=== PATIENT | female | born 1980 | race Caucasian/White ===

== ENCOUNTER 2017-04-23 05:44 | Emergency (ER) | payer MEDICAID ==
[2017-04-23 05:56] VITALS: BP 123/84
--- NOTE | 2017-04-23 05:58 | ED Physician Documentation ---
PD HPI HEENT - Stated complaint Stated Complaint: SORE THROAT - Chief complaint Chief Complaint: General - History obtained from History obtained from: Patient - History of Present Illness Timing - onset: How many days ago Timing - duration: Days (2) Timing - details: Gradual onset, Constant, Waxing and waning Pain level now: 6 Location: Throat Improves: Nothing Worsens: Swalllowing Associated symptoms: Fever (Tmax 100.8) Similar symptoms before: Has not had sx before Recently seen: Not recently seen Review of Systems Constitutional: reports: Fever Ears: denies: Ear pain Nose: denies: Congestion, Sinus pressure / pain Throat: reports: Sore throat Respiratory: denies: Cough PD PAST MEDICAL HISTORY - Past Medical History Cardiovascular: Other Respiratory: None Endocrine/Autoimmune: None GI: Chronic constipation, Other : None HEENT: None Psych: Depression, Anxiety, Panic attacks Musculoskeletal: Chronic back pain Derm: None - Past Surgical History /[employer]: section, Tubal ligation - Present Medications Home Medications: Ambulatory Orders Medication Instructions Recorded Confirmed Cholecalciferol (Vitamin D3) 5,000 unit PO DAILY 12/02/14 12/02/14 [Vitamin D] Chrom Sudhir/Brindal Ashby [Garcinia 1 each PO DAILY 12/02/14 12/02/14 Cambogia Tablet] Multivitamin [Multivitamins] 1 each PO DAILY 12/02/14 12/02/14 [place]'s Wort 450 mg PO DAILY 12/02/14 12/02/14 Hydrocodone/Acetaminophen 1 - 2 each PO Q6HR PRN #10 tablet 04/23/17 [Hydrocodon-Acetaminophen 5-325] Penicillin V Potassium 500 mg PO QID #39 tablet 04/23/17 - Allergies Allergies/Adverse Reactions: Allergies Allergy/AdvReac Type Severity Reaction Status Date / Time latex AdvReac Intermediate Rash Verified 04/23/17 05:55 PD ED PE NORMAL - Vitals Vital signs reviewed: Yes - General General: Alert and oriented X 3, Well developed/nourished, Other (appears uncomfortable) - HEENT HEENT: Moist mucous membranes - Neck Neck: Supple, no meningeal sign PD ED PE EXPANDED - HEENT HEENT: Pharyngeal erythema, Swollen tonsils, Tonsillar exudate Results - Vitals Vitals: Vital Signs - 24 hr 04/23/17 05:53 Temperature 36.8 C Heart Rate 86 Respiratory 17 Rate Blood Pressure 123/84 H O2 Saturation 97 Oxygen O2 Source Room air - Labs Labs: Laboratory Tests 04/23/17 05:55 Group A Strep Rapid POSITIVE H PD MEDICAL DECISION MAKING - ED course Complexity details: reviewed results, re-evaluated patient, considered differential, d/w patient Departure - Departure Disposition: 01 Home, Self Care Clinical Impression: Strep pharyngitis Condition: Good Instructions: ED Strep Pharyngitis Conf Follow-Up: Georgina Jha ARNP [Primary Care Provider] - (4-5 days if symptoms persist) Prescriptions: Hydrocodone/Acetaminophen [Hydrocodon-Acetaminophen 5-325] 1 - 2 each PO Q6HR PRN #10 tablet PRN Reason: Pain Penicillin V Potassium 500 mg PO QID #39 tablet Forms: Activity restrictions Discharge Date/Time: 04/23/17 06:54
[2017-04-23 06:09] LABS: RAPID STREP SCREEN REAGENT QC YELLOW (YELLOW)
[2017-04-23] MEDS ORDERED: DEXAMETHASONE 10 MG/ML VIAL PO STA (06:09)
[2017-04-23] MEDS ORDERED: DEXAMETHASONE 10 MG/ML VIAL ONE (06:11)
[2017-04-23] MEDS ORDERED: HYDROcod/ACET 5/325 Prepack 6 PO STA (06:38)
[2017-04-23] MEDS ORDERED: PENICILLIN VK 250 MG TABLET PO STA (06:38)
[2017-04-23] MEDS ORDERED: HYDROcod/ACET 5/325 Prepack 6 PO ONE (06:40)
[2017-04-23] MEDS ORDERED: PENICILLIN VK 250 MG TABLET PO ONE (06:40)
== END 2017-04-23 06:54 | disposition home or self-care (01) ==
LOC: ED 05:44
DX: J02.0 Streptococcal pharyngitis (principal)
CPT/HCPCS: 87430; 99283; A9270

== ENCOUNTER 2017-08-30 08:00 | Outpatient (CLI) | payer MEDICAID ==
[2017-08-30 18:08] LABS: BILIRUBIN,URINE NEGATIVE (NEGATIVE); PH,URINE 7.5 PH (5.0-7.5)
[2017-08-30 18:45] LABS: UA CHARGE (STRIP ONLY) YES
== END 2017-08-30 08:01 | disposition home or self-care (01) ==
LOC: LAB.R 08:00
PROVIDERS: ATTEND Nurse Practitioner Family
DX: R10.30 Lower abdominal pain, unspecified (principal)
CPT/HCPCS: 81001; 81003

== ENCOUNTER 2017-09-01 09:38 | Outpatient (CLI) | payer MEDICAID ==
[2017-09-01 18:22] LABS: BILIRUBIN,DIRECT 0.1 mg/dL (0.1-0.5); BILIRUBIN,TOTAL 0.7 mg/dL (0.2-1.0); TOTAL PROTEIN 7.5 g/dL (6.7-8.2)
== END 2017-09-01 09:39 | disposition home or self-care (01) ==
LOC: LAB.F 09:38
PROVIDERS: ATTEND Nurse Practitioner Family
DX: B19.20 Unspecified viral hepatitis C without hepatic coma (principal); Z13.1 Encounter for screening for diabetes mellitus; R10.30 Lower abdominal pain, unspecified
CPT/HCPCS: 36415; 80076; 82947

== ENCOUNTER 2018-10-23 15:30 | Outpatient (CLI) | payer MEDICAID ==
[2018-10-23 18:05] LABS: BASOPHILS % (AUTO) 0.4 %; EOSINOPHILS # (AUTO) 0.1 10^3/uL (0.0-0.7); EOSINOPHILS % (AUTO) 1.1 %; HGB - HEMOGLOBIN 13.7 g/dL (12.0-16.0); LYMPHOCYTES # (AUTO) 1.6 10^3/uL (1.5-3.5); LYMPHOCYTES % (AUTO) 17.5 %; MEAN CORPUSCULAR HEMOGLOBIN 30.9 pg (27.0-31.0); MEAN CORPUSCULAR HGB CONC 33.9 g/dL (32.0-36.0); MEAN CORPUSCULAR VOLUME 91.2 fL (81.0-99.0); MONOCYTES # (AUTO) 0.7 10^3/uL (0.0-1.0); MONOCYTES % (AUTO) 7.2 %; NEUTROPHILS # (AUTO) 6.7 10^3/uL (1.5-6.6); NEUTROPHILS % (AUTO) 73.8 %; PLT - PLATELET COUNT 221 10^3/uL (130-450); RED BLOOD COUNT 4.43 10^6/uL (4.20-5.40); RED CELL DISTRIBUTION WIDTH 12.8 % (12.0-15.0); WHITE BLOOD COUNT 9.2 x10^3/uL (4.8-10.8)
[2018-10-23 20:28] LABS: ALBUMIN 4.8 g/dL (3.2-5.5); ALBUMIN/GLOBULIN RATIO 1.7 (1.0-2.2); BILIRUBIN,TOTAL 0.4 mg/dL (0.2-1.0); CALCIUM 8.9 mg/dL (8.5-10.3); CREATININE 0.7 mg/dL (0.4-1.0); TOTAL PROTEIN 7.6 g/dL (6.7-8.2)
== END 2018-10-23 23:59 | disposition home or self-care (01) ==
LOC: LAB.S 15:30
PROVIDERS: ATTEND Nurse Practitioner Family
DX: F41.8 Other specified anxiety disorders (principal)
CPT/HCPCS: 36415; 80050

== ENCOUNTER 2019-08-22 11:01 | Emergency (ER) | payer SELFPAY ==
[2019-08-22] MEDS ORDERED: AMOX/CLAV 875 MG/125 MG TABLET PO STA (13:02)
--- NOTE | 2019-08-22 13:04 | ED Physician Documentation ---
PD HPI SKIN - Stated complaint Stated Complaint: CAT SCRATCH - Chief complaint Chief Complaint: Wound - History obtained from History obtained from: Patient - History of Present Illness Timing - onset: Last night (38-year-old woman who is up-to-date on tetanus, her cat scratched her last night, once inside the right nares and once on upper right eyelid. No visual deficit. 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 - Present Medications Home Medications: Ambulatory Orders Medication Instructions Recorded Confirmed Cholecalciferol (Vitamin D3) 5,000 unit PO DAILY 12/02/14 12/02/14 [Vitamin D] Chrom Sudhir/Brindal Ashby [Garcinia 1 each PO DAILY 12/02/14 12/02/14 Cambogia Tablet] Multivitamin [Multivitamins] 1 each PO DAILY 12/02/14 12/02/14 [place]'s Wort 450 mg PO DAILY 12/02/14 12/02/14 Hydrocodone/Acetaminophen 1 - 2 each PO Q6HR PRN #10 tablet 04/23/17 [Hydrocodon-Acetaminophen 5-325] Penicillin V Potassium 500 mg PO QID #39 tablet 04/23/17 Amox/Clav 875/125 [Augmentin] 1 each PO Q12H #20 tablet 08/22/19 - Allergies Allergies/Adverse Reactions: Allergies Allergy/AdvReac Type Severity Reaction Status Date / Time latex AdvReac Intermediate Rash Verified 08/22/19 11:12 - Social History Does the pt smoke?: Yes Smoking Status: Current some day smoker Does the pt drink ETOH?: Yes Does the pt have substance abuse?: No - Immunizations Immunizations are current?: Yes PD ED PE NORMAL - Vitals Vital signs reviewed: Yes - General General: Alert and oriented X 3, No acute distress - HEENT HEENT: Other (There is a small scratch on the upper eyelid, this is on the right. FLUORESCEIN examination is negative. There is mild edema and redness of the eyelid. There is also a scratch on the border of the lateral right nares without evidence of infection there.) - Neck Neck: Supple, no meningeal sign, No bony TTP - Neuro Neuro: Alert and oriented X 3, Normal speech Results - Vitals Vitals: Vital Signs - 24 hr 08/22/19 08/22/19 11:12 13:12 Temperature 36.5 C 36.6 C Heart Rate 65 67 Respiratory 16 16 Rate Blood Pressure 151/79 H 115/92 H O2 Saturation 100 100 Oxygen O2 Source Room air PD MEDICAL DECISION MAKING - ED course ED course: 38-year-old woman with very mild cat scratch infection of the right eyelid and a noninfected scratch of the right nares. She is started on Augmentin. Tetanus is up-to-date. Departure - Departure Disposition: 01 Home, Self Care Clinical Impression: Cat scratch of face Qualifiers: Encounter type: initial encounter Qualified Code(s): S00.81XA - Abrasion of other part of head, initial encounter Condition: Good Record reviewed to determine appropriate education?: Yes Instructions: ED Bite Animal General Prescriptions: Amox/Clav 875/125 [Augmentin] 1 each PO Q12H #20 tablet Comments: Return for increasing swelling, fevers, significant pain. Your blood pressure was elevated today on check into the emergency department. This does not mean that you have hypertension, it is a common phenomenon to come to the emergency department and have elevated blood pressure. I recommend that you see your primary care physician within the week to have it rechecked when you are feeling better. Discharge Date/Time: 08/22/19 13:45
[2019-08-22 13:12] VITALS: BP 115/92
== END 2019-08-22 13:45 | disposition home or self-care (01) ==
LOC: ED 11:01
DX: S00.31XA Abrasion of nose, initial encounter (principal); S00.211A Abrasion of right eyelid and periocular area, initial encounter; W55.03XA Scratched by cat, initial encounter; Y93.89 Activity, other specified; Y92.009 Unspecified place in unspecified non-institutional (private) residence as the place of occurrence of the external cause; F17.200 Nicotine dependence, unspecified, uncomplicated
CPT/HCPCS: 99283; A9270

== ENCOUNTER 2021-10-16 13:45 | Outpatient (CLI) | payer SELFPAY ==
[2021-10-16 17:15] LABS: BILIRUBIN,URINE NEGATIVE (NEGATIVE); GLUCOSE, URINE (UA) NEGATIVE (NEGATIVE); KETONES,URINE (UA) NEGATIVE (NEGATIVE); LEUKOCYTE ESTERASE, URINE NEGATIVE (NEGATIVE); NITRITE,URINE NEGATIVE (NEGATIVE); OCCULT BLOOD,URINE NEGATIVE (NEGATIVE); PH,URINE 6.5 PH (5.0-7.5); PROTEIN,URINE NEGATIVE (NEGATIVE); UROBILINOGEN,URINE 0.2 (NORMAL) E.U./dL (NORMAL)
[2021-10-16 17:26] LABS: BACTERIA,URINE Rare /HPF (None Seen); CLARITY,URINE CLEAR (CLEAR); RBC,URINE None Seen /HPF (0-5); SQUAMOUS EPITHELIAL CELL,UR RARE Squamous (<= Few); WBC,URINE 0-3 /HPF (0-5)
== END 2021-10-16 23:59 | disposition home or self-care (01) ==
LOC: LAB 13:45
PROVIDERS: ATTEND Obstetrics & Gynecology
DX: N30.00 Acute cystitis without hematuria (principal)
CPT/HCPCS: 81001; 87086

== ENCOUNTER → 2021-12-29 | Outpatient (CLI) | payer SELFPAY | LOC: LAB.S 08:00 | PROVIDERS: ATTEND Physician Assistant | DX: J03.90 Acute tonsillitis, unspecified (principal) | CPT/HCPCS: 87070 ==

== ENCOUNTER 2022-01-05 12:41 | Outpatient (CLI) | payer SELFPAY ==
--- NOTE | 2022-01-05 16:57 | Ultrasound Report ---
PROCEDURE: Pelvic w/Transvaginal INDICATIONS: ABN UTERINE BLEEDING TECHNIQUE: Ultrasound of the pelvis is performed. COMPARISON: None. FINDINGS: Uterus measures 10.6 x 4.8 cm x 6.1 cm, and demonstrates no focal mass. Uterine echotexture is coarse and heterogeneous. Endometrium is normal in thickness at 6 mm diameter. Right ovary measures 24 mm x 18 mm x 16 mm. Left ovary measures 30 mm x 19 mm x 27 mm. IMPRESSION: Negative examination. Reviewed by: Carissa Álvarez MD on 01/05/2022 4:56 PM PST Approved by: Carissa Álvarez MD on 01/05/2022 4:56 PM PST Station ID: [id number]
== END 2022-01-05 12:42 | disposition home or self-care (01) ==
LOC: DI 12:41
PROVIDERS: ATTEND Obstetrics & Gynecology
DX: N93.9 Abnormal uterine and vaginal bleeding, unspecified (principal)

== ENCOUNTER 2022-11-16 16:58 | Observation (INO) | payer SELFPAY ==
[2022-11-16] MEDS ORDERED: HYDROmorphone 1 MG/ML CARPUJECT IM STA (17:18)
--- NOTE | 2022-11-16 17:19 | ED Physician Documentation ---
PD HPI MAJOR TRAUMA - Stated complaint Stated Complaint: CHEST PAIN LEFT SIDE - Chief complaint Chief Complaint: Trauma Hd/Nk - History obtained from History obtained from: Patient - Additional information Additional information: Otherwise healthy 41-year-old woman with no possibility of was standing on a sled today going down a hill and fell landing on her left side hurting the left neck, shoulder, left ribs and felt a crunch in the left ribs and has pain with breathing. No head injury, no loss of consciousness, no headache. Review of Systems Ten Systems: 10 systems reviewed and negative Cardiac: reports: Chest pain / pressure Respiratory: denies: Dyspnea PD PAST MEDICAL HISTORY - Past Medical History Cardiovascular: Other Respiratory: None Neuro: None Endocrine/Autoimmune: None GI: Chronic constipation, Other : None HEENT: None Psych: Depression, Anxiety, Panic attacks Musculoskeletal: Chronic back pain Derm: None - Past Surgical History Ortho: Carpal Tunnel surgery /[employer]: section, Tubal ligation - Present Medications Home Medications: Ambulatory Orders Medication Instructions Recorded Confirmed No Known Home Medications 11/16/22 11/16/22 - Allergies Allergies/Adverse Reactions: Allergies Allergy/AdvReac Type Severity Reaction Status Date / Time latex AdvReac Intermediate Rash Verified 11/16/22 17:10 - Social History Does the pt smoke?: Yes Smoking Status: Current some day smoker Does the pt drink ETOH?: Yes Does the pt have substance abuse?: No - Immunizations Immunizations are current?: Yes PD ED PE NORMAL - Vitals Vital signs reviewed: Yes - General General: Alert and oriented X 3, Other (She appears uncomfortable) - HEENT HEENT: PERRL, EOMI - Neck Neck: No bony TTP (But will CT given potential for distracting injury from likely rib fracture) - Cardiac Cardiac: RRR, No murmur - Respiratory Respiratory: No respiratory distress, Clear bilaterally, Other (Tender left lower and mid ribs mid axillary line) - Abdomen Abdomen: Non tender - Back Back: No CVA TTP, No spinal TTP - Derm Derm: Normal color, Warm and dry - Extremities Extremities: No deformity, No tenderness to palpate, Normal ROM s pain, Other (Left shoulder is actually nontender, but when she ranges it she has no pain in the shoulder but she does have referred pain to the left ribs.) - Neuro Neuro: Alert and oriented X 3, Normal speech Eye Opening: Spontaneous Motor: Obeys Commands Verbal: Oriented GCS Score: 15 - Psych Psych: Normal mood, Normal affect Results - Vitals Vitals: Vital Signs - 24 hr 11/16/22 11/16/22 17:06 18:28 Temperature 36.0 C L Heart Rate 77 71 Respiratory 16 20 Rate Blood Pressure 132/78 H 131/72 H O2 Saturation 99 98 Oxygen O2 Source Room air - Labs Labs: Laboratory Tests 11/16/22 11/16/22 11/16/22 18:11 18:11 18:11 WBC 10.9 H RBC 4.49 Hgb 13.3 Hct 40.3 MCV 89.8 MCH 29.6 MCHC 33.0 RDW 11.8 L Plt Count 264 MPV 10.5 Neut # (Auto) 8.0 H Lymph # (Auto) 2.0 [place] # (Auto) 0.8 Eos # (Auto) 0.1 Baso # (Auto) 0.0 Absolute Nucleated RBC 0.00 Nucleated RBC % 0.0 PT 10.8 INR 1.0 Sodium 137 Potassium 4.0 Chloride 104 Carbon Dioxide 24 Anion Gap 9.0 BUN 13 Creatinine 0.8 Estimated GFR (MDRD) 80 L Glucose 94 Calcium 8.8 PD Medical Decision Making - ED course ED course: 41-year-old woman after a fall from a sled with severe left chest wall pain and injuries. CT of the cervical spine was imaged out of an abundance of caution given potential for distracting injury and showed probable incidental findings per the radiologist note but does have a single rib fracture on the left with a small pneumothorax. Spoke with Dr. Rodgers at approximately 6:[address] in observation. Departure - Departure Disposition: ED Place in Observation Clinical Impression: Rib fracture, Pneumothorax, Neck strain Condition: Stable
[2022-11-16] MEDS ORDERED: HYDROmorphone 1 MG/ML CARPUJECT IVP STA (18:08)
[2022-11-16] MEDS ORDERED: KETOROLAC 15 MG/ML VIAL IVP STA (18:08)
--- NOTE | 2022-11-16 18:25 | CT Report ---
PROCEDURE: CERVICAL SPINE WO INDICATIONS: neck inj TECHNIQUE: Noncontrast 3 mm thick sections acquired from the skull base to the T4 level. Sagittal and coronal r eformats were then constructed. For radiation dose reduction, the following was used: automated exp osure control, adjustment of mA and/or kV according to patient size. COMPARISON: None. 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 No definite fracture or traumatic subluxation identified. Soft tissues: No pathologic prevertebral soft tissue swelling. No apical pneumothorax. IMPRESSION: No acute fracture or traumatic subluxation of cervical spine. Small bone chip seen at the anterosupe rior corners of the C5 and C6 vertebral bodies may represent chronic limbus vertebra. If there is hig h concern for further derangement, consider MRI evaluation. Reviewed by: Dayron Rocha MD on 11/16/2022 5:24 PM [place] Approved by: Dayron Rocha MD on 11/16/2022 5:24 PM [facility] Station ID: [id number]
[2022-11-16 18:26] LABS: BASOPHILS % (AUTO) 0.4 %; EOSINOPHILS # (AUTO) 0.1 10^3/uL (0.0-0.7); EOSINOPHILS % (AUTO) 0.6 %; HCT - HEMATOCRIT 40.3 % (37.0-47.0); HGB - HEMOGLOBIN 13.3 g/dL (12.0-16.0); MEAN CORPUSCULAR HEMOGLOBIN 29.6 pg (27.0-31.0); MEAN CORPUSCULAR VOLUME 89.8 fL (81.0-99.0); MEAN PLATELET VOLUME 10.5 fL (7.9-10.8); MONOCYTES # (AUTO) 0.8 10^3/uL (0.0-1.0); MONOCYTES % (AUTO) 7.4 %; NEUTROPHILS % (AUTO) 73.3 %; PLT - PLATELET COUNT 264 10^3/uL (130-450); RED BLOOD COUNT 4.49 10^6/uL (4.20-5.40); RED CELL DISTRIBUTION WIDTH 11.8 % (12.0-15.0); WHITE BLOOD COUNT 10.9 x10^3/uL (4.8-10.8)
[2022-11-16 18:32] LABS: PT - PROTHROMBIN TIME 10.8 secs (9.9-12.6)
[2022-11-16 18:34] LABS: CALCIUM 8.8 mg/dL (8.5-10.3); CREATININE 0.8 mg/dL (0.4-1.0)
--- NOTE | 2022-11-16 18:34 | CT Report ---
PROCEDURE: CHEST WO INDICATIONS: chest wall inj left TECHNIQUE: Noncontrast 1mm axial images were acquired from the pulmonary apices to the posterior costophrenic an gles. Axial 5 mm soft tissue kernel reconstructions were performed as well as 8 mm axial MIP and cor onal and sagittal 5 mm reformations. For radiation dose reduction, the following was used: automate d exposure control, adjustment of mA and/or kV according to patient size. COMPARISON: None FINDINGS: Image quality: Good Lungs and pleura: Small left pneumothorax. Basal atelectasis. Pulmonary micronodules are best seen on maximum intensity images. Followup for these is optional for high-risk patients. Index lesion in the right lower lobe measures 4 to 5 mm (lung series image 218). Mediastinum, heart, and esophagus: Limited evaluation on noncontrast imaging. No hiatal hernia. Heart size is normal. No significant mediastinal hematoma. No pathologic adenopathy by size criteria. Chest wall and thyroid: Thyroid is unremarkable. Extrapleural hematoma adjacent to the left seventh r ib, with some gas. Upper abdomen: Limited evaluation due to the morning artifact from arms. Noncontrast technique. No gr oss abnormality is identified. Bones: Nondisplaced left seventh rib fracture. No fracture or traumatic subluxation of the thoracic s pine. IMPRESSION: Left seventh rib nondisplaced fracture. Small left pneumothorax. Findings were communicated with the [facility] ED at 5:30pm [facility] Dr. [place]. Other findings described above, including small pulmonary nodules. Reviewed by: Dayron Rocha MD on 11/16/2022 5:33 PM [place] Approved by: Dayron Rocha MD on 11/16/2022 5:[address] [facility] Station ID: [id number]
[2022-11-16] MEDS ORDERED: ONDANSETRON 4 MG/2 ML VIAL IVP STA (18:47)
[2022-11-16 19:06] LABS: HCG UR QUAL NEGATIVE
[2022-11-16] MEDS ORDERED: METOCLOPRAMIDE 10 MG/2 ML VIAL IVP STA (19:19)
[2022-11-16] MEDS ORDERED: GABAPENTIN 300 MG CAPSULE PO PRN (19:35)
[2022-11-16] MEDS ORDERED: SODIUM CHLORIDE FLUSH 0.9% 10 ML SYRINGE IVP PRN (19:35)
[2022-11-16] MEDS ORDERED: HYDROmorphone 0.5 MG/0.5 ML SYRINGE IVP PRN (19:35)
[2022-11-16] MEDS ORDERED: oxyCODONE 5 MG TABLET PO PRN (19:35)
[2022-11-16] MEDS ORDERED: ONDANSETRON 4 MG/2 ML VIAL IVP PRN (19:35)
[2022-11-16 19:37] LABS: B. PARAPERTUSSIS- RESP PCR PAN NOT DETECTED; B. PERTUSSIS- RESP PCR PANEL NOT DETECTED; C. PNEUMONIAE- RESP PCR PANEL NOT DETECTED; CORONAVIRUS 229E-RESP PCR NOT DETECTED; CORONAVIRUS HKU1-RESP PCR NOT DETECTED; CORONAVIRUS NL63-RESP PCR NOT DETECTED; CORONAVIRUS OC43-RESP PCR NOT DETECTED; HUMAN METAPNEUMOVIRUS NOT DETECTED; INFLUENZA A- RESP PCR PANEL NOT DETECTED; INFLUENZA B - RESP PCR PANEL NOT DETECTED; M. PNEUMONIAE- RESP PCR PANEL NOT DETECTED; PARAINFLUENZA VIRUS 1 NOT DETECTED; PARAINFLUENZA VIRUS 2 NOT DETECTED; PARAINFLUENZA VIRUS 3 NOT DETECTED; PARAINFLUENZA VIRUS 4 NOT DETECTED; RHINOVIRUS/ENTEROVIRUS NOT DETECTED; RSV- RESP PCR PANEL NOT DETECTED; SARS-CoV-2 -RESP PCR PANEL NOT DETECTED
--- NOTE | 2022-11-16 19:46 | SURGERY HX AND PHYSICAL(T) ---
Surgical History & Physical - Chief Complaint/HPI Chief Complaint: s/p fall from sled History of Present Illness: The patient was in her normal state of health until approximately one hour prior to presentation, when the patient was sledding in the backyard of her home with her son. She tried to sled "snowboard style" standing on the sled, and fell off the sled, landing on her left side. Patient states "I heard a loud pop and felt pain in my left side." She denies hitting her head or LOC. She has some lateral left neck pain, and left chest wall pain, but denies other pain. She is feeling sleeping and nauseated at the time of my exam, but states the nausea started after getting pain medication. She denies any allergies or home medications. - PMH/PSH/Social Hx Does the pt have a hx of MRSA?: No Neurological History: None Eyes, Ears, Nose, Throat: None Cardiovascular: Other Respiratory: None Skin: None Endocrine/Autoimmune: None Gastrointestinal: Chronic constipation, Other CLASSER: None Urinary: None Musculoskeletal: Chronic back pain Psychiatric: Depression, Anxiety, Panic attacks Orthopedic: Carpal Tunnel surgery Smoking Status: Current some day smoker Does the pt drink ETOH?: Yes Frequency: Occasional Does the pt have substance abuse?: No - Family Hx Family Hx: Unremarkable - Home Meds and Allergies Home Medications: No Known Home Medications 11/16/22 Allergies/Adverse Reactions: Allergies Allergy/AdvReac Type Severity Reaction Status Date / Time latex AdvReac Intermediate Rash Verified 11/16/22 17:10 - Review of Systems Constitutional: Other (10 point ROS is negative except for HPI and PMH.) - Vital Signs Heart Rate: 71 Blood Pressure: 131/72 Temperature: 36.0 C Respiratory Rate: 20 O2 Saturation: 98 Weight (kg): 90.718 kg Height: 1.7 m - Physical Exam General Appearance: positive: No acute distress, Alert Eyes Bilatera: positive: Normal inspection, PERRL, EOMI ENT: positive: ENT inspection nml, Other (No obvious facial trauma. No malocclusion. Equal sensation B.) Neck: positive: Nml inspection, Trachea midline, Other (No midline pain on palpation. Lateral L neck ttp.) Respiratory: positive: Other (lateral L chest wall ttp, no bruising or obvious sign of trauma.). negative: No respiratory distress, Breath sounds nml, Wheezes, Rales, Rhonchi Cardiovascular: positive: Regular rate & rhythm, No murmur Peripheral Pulses: positive: 2+ Abdomen: positive: Non-tender, No distention, Other (No signs of trauma on inspection.). negative: Guarding, Rebound Back: positive: Nml inspection, Other (No midline ttp.) Skin: positive: Color nml, No rash, Warm, Dry Extremities: positive: Non-tender, Full ROM, No pedal edema Neurologic/Psychiatric: positive: Oriented x3 - Patient Review Patient Review: Problems were reviewed with the patient during this visit. Medications were reviewed with the patient during this visit. Allergies were reviewed this patient during this visit. Pertinent Tests Reviewed: All pertitent test for this patient were reviewed. - Assessment & Plan Assessment and Plan: 41 y/o F s/p fall from standing on sled, no with L 7th rib fx, very small L ptx on CT, L neck strain. L 7th rib fx, PTX - CXR in AM to assess for worsening, though this is felt to be unlikely - monitor for signs of respiratory distress - rib fx protocol with multimodal approach to pain - home tomorrow if no worsening of PTX, pain controlled without IV meds L neck strain - suspect multimodal pain meds will help, monitor DVT PPX: SCD's Plan for tertiary exam tomorrow. The patient will be admitted for observation to assess for worsening PTX and for pain control.
[2022-11-16] MEDS ORDERED: LIDOCAINE PATCH 5% TOP STA (19:54)
[2022-11-16] MEDS ORDERED: LIDOCAINE PATCH 5% TOP ONE (20:21)
[2022-11-16] MEDS: ACETAMINOPHEN 500 MG TABLET PO SCH (22:16)
[2022-11-16] MEDS: IBUPROFEN 800 MG TABLET PO SCH (22:17)
[2022-11-17] MEDS: SODIUM CHLORIDE FLUSH 0.9% 10 ML SYRINGE IVP SCH ×2 (00:04→11:16)
[2022-11-17 05:34] LABS: CALCIUM 8.4 mg/dL (8.5-10.3); CREATININE 0.8 mg/dL (0.4-1.0); POTASSIUM 3.3 mmol/L (3.5-5.0)
[2022-11-17] MEDS: ACETAMINOPHEN 500 MG TABLET PO SCH ×2 (07:02→13:56)
[2022-11-17] MEDS: IBUPROFEN 800 MG TABLET PO SCH ×2 (07:04→13:56)
--- NOTE | 2022-11-17 07:50 | PROVIDER PROGRESS NOTE ---
Subjective - General Admit Date: 11/16/22 - Other Other Information/Narrative: Patient's pain is markedly improved this AM. She has not received any narcotic since admission. +void. Increased pain with deep breathing, but not feeling SOA. No nausea this AM. Denies f/c. Objective - Patient Data Reviewed Vital Signs: Yes Vital Signs: Vital Signs x48h Temp Pulse Resp BP BP Pulse Ox 11/17/22 05:27 12 11/17/22 05:00 36.7 C 63 16 94/40 L 95 11/17/22 01:00 36.6 C 75 15 83/45 L 98/50 L 92 Weight: Weight 11/15/22 11/16/22 11/17/22 23:59 23:59 23:59 Weight (kg) 92 kg Intake & Output: Intake and Output Totals x24h 11/15/22 11/16/22 11/17/22 23:59 23:59 23:59 Intake Total 350 400 Balance 350 400 - Lab Results Lab Results: 11/16/22 18:11 11/17/22 04:56 Other Lab Results: Lab Results x24hrs 11/17/22 11/16/22 11/16/22 Range/Units 04:56 19:12 18:55 WBC (4.8-10.8) x10^3/uL RBC (4.20-5.40) 10^6/uL Hgb (12.0-16.0) g/dL Hct (37.0-47.0) % MCV (81.0-99.0) fL MCH (27.0-31.0) pg MCHC (32.0-36.0) g/dL RDW (12.0-15.0) % Plt Count (130-450) 10^3/uL MPV (7.9-10.8) fL Neut # (Auto) (1.5-6.6) 10^3/uL Lymph # (Auto) (1.5-3.5) 10^3/uL [place] # (Auto) (0.0-1.0) 10^3/uL Eos # (Auto) (0.0-0.7) 10^3/uL Baso # (Auto) (0.0-0.1) 10^3/uL Absolute Nucleated RBC x10^3/uL Nucleated RBC % /100WBC PT (9.9-12.6) secs INR (0.8-1.2) Sodium 138 (135-145) mmol/L Potassium 3.3 L (3.5-5.0) mmol/L Chloride 106 (101-111) mmol/L Carbon Dioxide 24 (21-32) mmol/L Anion Gap 8.0 (6-13) BUN 14 (6-20) mg/dL Creatinine 0.8 (0.4-1.0) mg/dL Estimated GFR (MDRD) 80 L (>89) Glucose 127 H (70-100) mg/dL Calcium 8.4 L (8.5-10.3) mg/dL Urine HCG, Qual NEGATIVE Nasal Adenovirus (PCR) Nasal B. parapertussis DNA (PCR) Nasal Coronavir 229E PCR Nasal Coronavir HKU1 PCR Nasal Coronavir NL63 PCR Nasal Coronavir OC43 PCR Nasal Enterovir/Rhinovir PCR Nasal Influenza B PCR Nasal Influenza A PCR Nasal Parainfluen 1 PCR Nasal Parainfluen 2 PCR Nasal Parainfluen 3 PCR Nasal Parainfluen 4 PCR Nasal RSV (PCR) Nasal B.pertussis DNA PCR Nasal C.pneumoniae (PCR) Memo Human Metapneumo PCR Nasal M.pneumoniae (PCR) Nasal SARS-CoV-2 (PCR) Blood Type Blood Type Recheck A POSITIVE Antibody Screen 11/16/22 11/16/22 11/16/22 Range/Units 18:17 18:11 18:11 WBC (4.8-10.8) x10^3/uL RBC (4.20-5.40) 10^6/uL Hgb (12.0-16.0) g/dL Hct (37.0-47.0) % MCV (81.0-99.0) fL MCH (27.0-31.0) pg MCHC (32.0-36.0) g/dL RDW (12.0-15.0) % Plt Count (130-450) 10^3/uL MPV (7.9-10.8) fL Neut # (Auto) (1.5-6.6) 10^3/uL Lymph # (Auto) (1.5-3.5) 10^3/uL [place] # (Auto) (0.0-1.0) 10^3/uL Eos # (Auto) (0.0-0.7) 10^3/uL Baso # (Auto) (0.0-0.1) 10^3/uL Absolute Nucleated RBC x10^3/uL Nucleated RBC % /100WBC PT 10.8 (9.9-12.6) secs INR 1.0 (0.8-1.2) Sodium 137 (135-145) mmol/L Potassium 4.0 (3.5-5.0) mmol/L Chloride 104 (101-111) mmol/L Carbon Dioxide 24 (21-32) mmol/L Anion Gap 9.0 (6-13) BUN 13 (6-20) mg/dL Creatinine 0.8 (0.4-1.0) mg/dL Estimated GFR (MDRD) 80 L (>89) Glucose 94 (70-100) mg/dL Calcium 8.8 (8.5-10.3) mg/dL Urine HCG, Qual Nasal Adenovirus (PCR) NOT DETECTED Nasal B. parapertussis DNA (PCR) NOT DETECTED Nasal Coronavir 229E PCR NOT DETECTED Nasal Coronavir HKU1 PCR NOT DETECTED Nasal Coronavir NL63 PCR NOT DETECTED Nasal Coronavir OC43 PCR NOT DETECTED Nasal Enterovir/Rhinovir PCR NOT DETECTED Nasal Influenza B PCR NOT DETECTED Nasal Influenza A PCR NOT DETECTED Nasal Parainfluen 1 PCR NOT DETECTED Nasal Parainfluen 2 PCR NOT DETECTED Nasal Parainfluen 3 PCR NOT DETECTED Nasal Parainfluen 4 PCR NOT DETECTED Nasal RSV (PCR) NOT DETECTED Nasal B.pertussis DNA PCR NOT DETECTED Nasal C.pneumoniae (PCR) NOT DETECTED Memo Human Metapneumo PCR NOT DETECTED Nasal M.pneumoniae (PCR) NOT DETECTED Nasal SARS-CoV-2 (PCR) NOT DETECTED Blood Type Blood Type Recheck Antibody Screen 11/16/22 11/16/22 Range/Units 18:11 18:11 WBC 10.9 H (4.8-10.8) x10^3/uL RBC 4.49 (4.20-5.40) 10^6/uL Hgb 13.3 (12.0-16.0) g/dL Hct 40.3 (37.0-47.0) % MCV 89.8 (81.0-99.0) fL MCH 29.6 (27.0-31.0) pg MCHC 33.0 (32.0-36.0) g/dL RDW 11.8 L (12.0-15.0) % Plt Count 264 (130-450) 10^3/uL MPV 10.5 (7.9-10.8) fL Neut # (Auto) 8.0 H (1.5-6.6) 10^3/uL Lymph # (Auto) 2.0 (1.5-3.5) 10^3/uL [place] # (Auto) 0.8 (0.0-1.0) 10^3/uL Eos # (Auto) 0.1 (0.0-0.7) 10^3/uL Baso # (Auto) 0.0 (0.0-0.1) 10^3/uL Absolute Nucleated RBC 0.00 x10^3/uL Nucleated RBC % 0.0 /100WBC PT (9.9-12.6) secs INR (0.8-1.2) Sodium (135-145) mmol/L Potassium (3.5-5.0) mmol/L Chloride (101-111) mmol/L Carbon Dioxide (21-32) mmol/L Anion Gap (6-13) BUN (6-20) mg/dL Creatinine (0.4-1.0) mg/dL Estimated GFR (MDRD) (>89) Glucose (70-100) mg/dL Calcium (8.5-10.3) mg/dL Urine HCG, Qual Nasal Adenovirus (PCR) Nasal B. parapertussis DNA (PCR) Nasal Coronavir 229E PCR Nasal Coronavir HKU1 PCR Nasal Coronavir NL63 PCR Nasal Coronavir OC43 PCR Nasal Enterovir/Rhinovir PCR Nasal Influenza B PCR Nasal Influenza A PCR Nasal Parainfluen 1 PCR Nasal Parainfluen 2 PCR Nasal Parainfluen 3 PCR Nasal Parainfluen 4 PCR Nasal RSV (PCR) Nasal B.pertussis DNA PCR Nasal C.pneumoniae (PCR) Memo Human Metapneumo PCR Nasal M.pneumoniae (PCR) Nasal SARS-CoV-2 (PCR) Blood Type A POSITIVE Blood Type Recheck Antibody Screen NEGATIVE - Imaging Results Imaging Results Comments: AM CXR pending - Current Medications Current Medications: Current Medications Generic Name Dose Route Start Last Admin Trade Name Freq PRN Reason Stop Dose Admin Acetaminophen 1,000 mg 11/16/22:00 11/17/22 07:02 Acetaminophen 500 Mg Tablet PO 1,000 mg Q8HR MIKHAIL Administration Ibuprofen 600 mg 11/16/22 22:00 11/17/22 07:04 Ibuprofen 800 Mg Tablet PO 600 mg Q8HR MIKHAIL Administration Sodium Chloride 10 ml 11/17/22 01:00 11/17/22 00:04 Sodium Chloride Flush 0.9% 10 Ml Syringe IVP 10 ml 0100,0900,1700 MIKHAIL Administration - Physical Exam General Appearance: positive: No acute distress, Alert Eyes Bilateral: positive: Normal inspection, PERRL ENT: positive: ENT inspection nml Respiratory: positive: No respiratory distress, Other (left lateral chest wall ttp) Cardiovascular: positive: Regular rate & rhythm Abdomen: positive: Non-tender, No distention. negative: Guarding, Rebound Back: positive: Nml inspection, Other (no midline ttp) Skin: positive: Color nml, No rash, Warm, Dry Extremities: positive: Non-tender, Full ROM Neurologic/Psychiatric: positive: Oriented x3 Impression/Plan - Problem List Problem List: 41 y/o F s/p fall from standing on sled, no with L 7th rib fx, very small L ptx on CT, L neck strain. L 7th rib fx, PTX - repeat CXR pending this AM to assess for worsening ptx, though this is felt to be unlikely - no respiratory distress - rib fx protocol with multimodal approach to pain - home today if no worsening of PTX, pain controlled without IV meds L neck strain - suspect multimodal pain meds will help, monitor DVT PPX: SCD's Tertiary exam complete, no addtional injury identified. The patient will be admitted for observation to assess for worsening PTX and for pain control.
--- NOTE | 2022-11-17 09:23 | XRAY Report ---
PROCEDURE: Chest 2 View X-Ray INDICATIONS: s/p fall, r 7th rib fx, ptx f/u TECHNIQUE: 2 views of the chest were acquired. COMPARISON: CT chest from yesterday FINDINGS: Surgical changes and devices: None. Lungs and pleura: Minimal left apical pneumothorax. Lungs are clear. Mediastinum: Mediastinal contours are normal. Heart size is normal. Bones and chest wall: Lateral left seventh rib fracture not seen on chest x-ray. No suspicious bony a bnormalities. Soft tissues appear unremarkable. IMPRESSION: Minimal persistent left apical pneumothorax. Reviewed by: Kevan Lacey MD on 11/17/2022 9:31 AM PST Approved by: Kevan Lacey MD on 11/17/2022 9:31 AM PST Station ID: [id number]
--- NOTE | 2022-11-17 10:26 | PHARMACY PROGRESS NOTE ---
- Best Possible Medication History Admit Date and Time: 11/16/221934 Processed by: Pharmacy Medication History completed: Yes Patient Interview: Completed (pt doesn't take any meds, but does do marijuana recreationally PRN) As the person ultimately responsible for medication therapy, providers are able to order a medication from an existing home medication list in [facility] via the "Reconcile Routine" prior to Confirmation of that medication by clinical support tech. Such practice is discouraged except when the physician, in their clinical judgment, deems that a medical need exists for a medication without regard to previous use.
--- NOTE | 2022-11-17 13:18 | Discharge Plan ---
Discharge Plan Problem Reviewed?: Yes Disposition: Home, Self Care Condition: Good Prescriptions: oxyCODONE [Roxicodone] 5 mg PO Q4HR PRN #15 tab PRN Reason: Pain Diet: Regular Activity Restrictions: No Restrictions Shower Restrictions: No Driving Restrictions: Yes (Do NOT drive while taking narcotic pain medication) Weight Bearing: Full Weight Instruction Topics: ED Fx Rib Additional Instructions or Follow Up instructions: follow up with Dr. Rodgers (office number [phone]) as needed. No Smoking: If you smoke, Please STOP! Call for help. Follow-up with: May Anderson ARNP [Primary Care Provider] -
[2022-11-17 14:04] VITALS: BP 131/99
--- NOTE | 2022-11-17 16:49 | DISCHARGE SUMMARY ---
Discharge Summary Admit Date: 11/16/22 Discharge Date: 11/17/22 Discharging Provider: Dr. Estefani Rodgers Condition at Discharge: Good Discharge Disposition: 01 Home, Self Care - DIAGNOSES Admission Diagnoses: s/p fall from sled left rib fracture, 7th rib, closed, initial encounter left pneumothorax, small neck strain Discharge Diagnoses with Status of Each Condition: s/p fall from sled left rib fracture, 7th rib, closed, initial encounter left pneumothorax, small, stable neck strain, stable - HPI History of Present Illness: The patient was in her normal state of health until approximately one hour prior to presentation, when the patient was sledding in the backyard of her home with her son. She tried to sled "snowboard style" standing on the sled, and fell off the sled, landing on her left side. Patient states "I heard a loud pop and felt pain in my left side." She denies hitting her head or LOC. She has some lateral left neck pain, and left chest wall pain, but denies other pain; she also denies shortness of breath. - CONSULTS | PROCEDURES Consultations: none Procedures: none - HOSPITAL COURSE Hospital Course: The patient was admitted under observation. Her CXR was stable the following morning and her pain was well controlled with minimal oral narcotic, and no IV pain medication. She is tolerating a regular diet. She did not have any nausea this AM with a single dose of oxycodone. She is not having any shortness of breath and no additional injuries were identified at the time of tertiary exam. At this time, she is appropriate for discharge to home. She may follow up with the surgery clinic as needed. - ALLERGIES Allergies/Adverse Reactions: Allergies Allergy/AdvReac Type Severity Reaction Status Date / Time latex AdvReac Intermediate Rash Verified 11/16/22 17:10 - MEDICATIONS Home Medications: Ambulatory Orders Medication Instructions Recorded Confirmed Acetaminophen [Tylenol] 1,000 mg PO Q8HR tab 11/17/22 Ibuprofen [Motrin] 600 mg PO Q8HR tab 11/17/22 oxyCODONE [Roxicodone] 5 mg PO Q4HR PRN #15 tab 11/17/22 - PHYSICAL EXAM AT DISCHARGE General Appearance: positive: Other (see progress note from date of discharge) - LABS Result Diagrams: 11/16/22 18:11 11/17/22 04:56 - DIAGNOSTIC IMAGING Diagnostic Imaging Results: Final report reviewed Diagnostic Imaging Results Comments: I personally reviewed the images and report from the CXR which demonstrates a small, stable L PTX. - FOLLOW UP Follow Up: Dr. Rodgers, prn PCP in 1-2 weeks - TIME SPENT Time Spent in Discharge (Minutes): 35
== END 2022-11-17 14:18 | disposition home or self-care (01) ==
LOC: ED 16:58 → MS2 19:35
PROVIDERS: ADMIT Surgery; ATTEND Surgery
DX: S27.0XXA Traumatic pneumothorax, initial encounter (principal); S22.32XA Fracture of one rib, left side, initial encounter for closed fracture; S16.1XXA Strain of muscle, fascia and tendon at neck level, initial encounter; W17.89XA Other fall from one level to another, initial encounter; Y93.23 Activity, snow (alpine) (downhill) skiing, snowboarding, sledding, tobogganing and snow tubing; Y92.007 Garden or yard of unspecified non-institutional (private) residence as the place of occurrence of the external cause; Z20.822 Contact with and (suspected) exposure to COVID-19; F17.200 Nicotine dependence, unspecified, uncomplicated
CPT/HCPCS: 36415; 71046; 71250; 72125; 80048; 81025; 85025; 85610; 86850; 86900; 86901; 87633; 96374; 96375; 96376; 99285; A9270; G0378; J1170; J2765